=== PATIENT | female | born 1980 | race Two or more races ===

== ENCOUNTER → 2018-10-14 10:35 | Outpatient (CLI) | payer OTHER | END | disposition home or self-care (01) | LOC: LAB 10:35 | DX: D68.0 Von Willebrand disease (principal); D68.8 Other specified coagulation defects; D65 Disseminated intravascular coagulation [defibrination syndrome]; M05.80 Other rheumatoid arthritis with rheumatoid factor of unspecified site; M32.8 Other forms of systemic lupus erythematosus ==